=== PATIENT | male | born 1965 | race Caucasian/White ===

== ENCOUNTER → 2019-01-13 | Outpatient (CLI) | payer OTHER ==
--- NOTE | 2019-01-13 15:41 | RAD ---
LUMBAR SPINE 2-3V History: Low back pain Comparison: None. Findings: 3 views of the lumbar spine are submitted. There is mild anterior wedge deformity of the L4 vertebral body. AP alignment is within normal limits. There is mild L3-4 and L1-2 degenerative disc disease. There is multilevel mild spondylosis. There is atherosclerotic calcification of the abdominal aorta. Impression: 1. There is multilevel mild lumbar spondylosis. There is mild degenerative disc disease L1-2 and L3-4. 2. There is mild anterior wedge deformity of L4 vertebral body of uncertain chronicity, correlation with any point tenderness advised. Electronically signed by: Sanjay Shaw MD (01/13/2019 3:38 PM) [id number]
== END | disposition home or self-care (01) ==
LOC: PF 09:22
PROVIDERS: ATTEND Family Medicine
DX: M47.816 Spondylosis without myelopathy or radiculopathy, lumbar region (principal); M51.36 Other intervertebral disc degeneration, lumbar region; M43.8X6 Other specified deforming dorsopathies, lumbar region; I70.0 Atherosclerosis of aorta; J44.9 Chronic obstructive pulmonary disease, unspecified
CPT/HCPCS: 72100; 94010